=== PATIENT | male | born 1970 | race African-American/Black ===

== ENCOUNTER 2018-07-29 15:55 | Emergency (ER) | payer OTHER ==
[~2018-07-29] VITALS: Ht 185.4 cm; Wt 102.1 kg
[2018-07-29] MEDS ORDERED: METF500 PO (16:54)
[2018-07-29] MEDS ORDERED: Glucophage1000 MG PO (17:06)
== END 2018-07-29 17:09 | disposition home or self-care (01) ==
LOC: ER 15:55
DX: Z76.0 Encounter for issue of repeat prescription (principal); Z79.84 Long term (current) use of oral hypoglycemic drugs; E11.9 Type 2 diabetes mellitus without complications; F17.200 Nicotine dependence, unspecified, uncomplicated
CPT/HCPCS: 99281